=== PATIENT | male | born 1955 | race Hispanic/Latino ===

== ENCOUNTER 2018-12-25 10:40 | Inpatient (IN) | payer OTHER ==
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
[2018-12-25] MEDS ORDERED: VITAMIN B-1 100 MG, FOLVITE 1 MG, INFUVITE 10 ML in NACL 0.9% 1000 ML 1,000 ML IV ONE (11:32)
[2018-12-25 11:37] LABS: Albumin 4.8 g/dL (3.9-5); Calcium 9.7 mg/dL (8.4-10.2)
[2018-12-25] MEDS ORDERED: NACL 0.9% 1000 ML 1,000 ML IV ONE (11:37)
[2018-12-25 11:38] LABS: Basophils % (Auto) 0.3 % (0.0-1.8); Hematocrit 41.9 % (35.5-45.6); Hemoglobin 14.3 gm/dl (11.8-15.2); Lymphocytes # (Auto) 1.4 K/mm3 (1.2-5.4); Lymphocytes % (Auto) 10.6 % (13.4-35.0); Mean Corpuscular HGB Conc 34 % (32-34); Mean Corpuscular Volume 105 fl (84-94); Monocytes # (Auto) 1.2 K/mm3 (0.0-0.8); Monocytes % (Auto) 8.7 % (0.0-7.3); Platelet Count 293 K/mm3 (140-440); Red Blood Count 3.98 M/mm3 (3.65-5.03); Red Cell Distribution Width 14.8 % (13.2-15.2)
[2018-12-25] MEDS ORDERED: BOOSTRIX IM ONE (11:55)
[2018-12-25] MEDS ORDERED: VITAMIN B-1 100 MG, FOLVITE 1 MG, INFUVITE 10 ML, MAGNESIUM SULFATE 2 GM in NACL 0.9% 1... IV ONE (12:00)
--- NOTE | 2018-12-25 12:09 | Cat Scan Report ---
PROCEDURE: CT HEAD/BRAIN WO CON TECHNIQUE: Axial images obtained head without intravenous contrast HISTORY: altered mental status, head trauma of unknown orig COMPARISONS: None FINDINGS: No acute extra-axial fluid collection. No midline shift. No cisternal effacement. Mild age-appropriat e prominence of the ventricles and subarachnoid spaces. Atherosclerotic calcification distal internal carotid arteries. Kim-white interface maintained. No parenchymal hemorrhage. There is no abnormal h yperdensity over the middle cerebral arteries. Right supraorbital hematoma noted. Orbital contents un remarkable. Paranasal sinuses demonstrate no air-fluid level. Mastoid air cells normal aeration. Calv arium with no acute defect. IMPRESSION: No acute intracranial process Right supraorbital soft tissue hematoma. This document is electronically signed by Jeffrey Guerrero MD., December 25 2018 12:07:36 PM ET
[2018-12-25 12:24] LABS: Creatine Kinase MB 14.3 ng/mL (0.0-4.0)
[2018-12-25 12:35] LABS: Free T4 (Free Thyroxine) 0.85 ng/dL (0.76-1.46)
--- NOTE | 2018-12-25 13:16 | Cat Scan Report ---
PROCEDURE: CT CERVICAL SPINE WO CON TECHNIQUE: CT images of the cervical spine were obtained without the use of IV contrast HISTORY: altered mental status, head trauma of unknown origin COMPARISONS: None FINDINGS: The vertebral body heights and alignment are maintained. There are degenerative disc changes at C6-7. There are osteoarthritic changes of the atlantodental articulation. No acute fracture or subluxation is seen. IMPRESSION: No acute fracture or subluxation. This document is electronically signed by Gela Bradshaw MD., December 25 2018 01:14:39 PM ET
[2018-12-25] MEDS: ATIVAN IV PRN ×3 (13:36→16:00)
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
--- NOTE | 2018-12-25 14:11 | XRay Report ---
PROCEDURE: XR CHEST 1V AP TECHNIQUE: Frontal chest x-ray HISTORY: dypsnea COMPARISONS: None FINDINGS: Normal heart size. Lungs are clear well-expanded without focal consolidation. There is mild coarsening of the bronchovas cular interstitium with possible mild bronchial wall thickening the right infrahilar region Sharp costophrenic angles. IMPRESSION: Possible mild right infrahilar bronchitis or coarse infiltrate. This document is electronically signed by Yas Stauffer MD., December 25 2018 02:09:45 PM ET
[2018-12-25] MEDS ORDERED: PROVENTIL IH PRN (15:16)
[2018-12-25] MEDS ORDERED: SODIUM CHLORIDE FLUSH SYRINGE 10 ML IV PRN (15:16)
[2018-12-25] MEDS ORDERED: ATIVAN IV ONE (15:30)
[2018-12-25] MEDS: THERAGRAN Tab PO ONE ×2 (15:59→17:40)
[2018-12-25] MEDS: VITAMIN B-1 PO ONE ×2 (15:59→17:40)
[2018-12-25] MEDS: ROCEPHIN/NS 1 GM/50 ML 1 GM/50 ML BAG IV SCH (15:59)
[2018-12-25] MEDS ORDERED: HALDOL IM ONE (16:20)
[2018-12-25] MEDS ORDERED: HALDOL ONE (16:20)
[2018-12-25] MEDS ORDERED: ATIVAN ONE (21:07)
[2018-12-25] MEDS: SODIUM CHLORIDE FLUSH SYRINGE 10 ML IV SCH (22:08)
[2018-12-25 23:00] LABS: Bilirubin,Urine NEG (Negative); Blood,Urine SM (Negative); Color,Urine Amber (Yellow); Hyaline Casts,Urine 3 /LPF; Mucus,Urine FEW /HPF; Urobilinogen,Urine < 2.0 mg/dL (<2.0)
[2018-12-25 23:04] LABS: Creatinine,Urine 209.1 mg/dL (0.1-20.0)
[2018-12-25 23:09] LABS: Benzodiazepines Screen,Urine PRESUMPTIVE NEGATIVE; Cannabinoid Screen,Urine PRESUMPTIVE NEGATIVE; Cocaine Screen,Urine PRESUMPTIVE NEGATIVE; Methadone Screen,Urine PRESUMPTIVE NEGATIVE; Opiate Screen,Urine PRESUMPTIVE NEGATIVE
[2018-12-25 23:21] LABS: Amphetamine Screen,Urine PRESUMPTIVE POSITIVE
[2018-12-26] MEDS ORDERED: NACL 0.45% 1000 ML 1,000 ML IV SCH (02:00)
[2018-12-26 03:48] LABS: Basophils # (Auto) 0.1 K/mm3 (0.0-0.1); Basophils % (Auto) 0.6 % (0.0-1.8); Eosinophils % (Auto) 0.3 % (0.0-4.3); Hematocrit 39.6 % (35.5-45.6); Hemoglobin 13.3 gm/dl (11.8-15.2); Lymphocytes # (Auto) 1.6 K/mm3 (1.2-5.4); Mean Corpuscular HGB Conc 34 % (32-34); Mean Corpuscular Volume 106 fl (84-94); Monocytes # (Auto) 0.8 K/mm3 (0.0-0.8); Monocytes % (Auto) 7.8 % (0.0-7.3); Platelet Count 233 K/mm3 (140-440); Red Blood Count 3.75 M/mm3 (3.65-5.03); Red Cell Distribution Width 14.9 % (13.2-15.2)
[2018-12-26 04:11] LABS: Albumin 3.6 g/dL (3.9-5); Calcium 9.1 mg/dL (8.4-10.2)
[2018-12-26] MEDS ORDERED: ATIVAN ONE ×8 (04:47→22:30)
[2018-12-26] MEDS: ATIVAN IV PRN ×8 (04:51→22:30)
--- NOTE | 2018-12-26 10:49 | Consultation ---
History of Present Illness - Reason for Consult Consult date: 12/26/18 acute renal failure - History of Present Illness the patient is a 63 year old male was admitted for altered mental status and confusion possible to alcohol withdrawals, he was found to have increased Cr and CK and renal consult was requested . history obtained from chart, no family at bedside Past History Past Medical History: hypertension Past Surgical History: Other (Cyst removed from back) Social history: single, alcohol abuse Family history: hypertension Medications and Allergies Allergies Allergy/AdvReac Type Severity Reaction Status Date / Time No Known Allergies Allergy Verified 12/25/18 11:33 Home Medications Medication Instructions Recorded Confirmed Last Taken Type Unobtainable 12/26/18 12/26/18 Unknown History Active Meds: Active Medications Albuterol (Proventil) 2.5 mg IH Q3HRT PRN PRN Reason: Shortness Of Breath Folic Acid (Folvite) 1 mg PO QDAY SHELIA Ceftriaxone Sodium (Rocephin/Ns 1 Gm/50 Ml) 1 gm in 50 mls @ 100 mls/hr IV Q24H SHELIA; Protocol Last Admin: 12/25/18 15:59 Dose: 100 mls/hr Documented by: Sodium Chloride (Nacl 0.45% 1000 Ml) 1,000 mls @ 75 mls/hr IV DIRECT SHELIA Lorazepam (Ativan) 2 mg IV Q1HR PRN PRN Reason: CIWA-Ar 8-15 Last Admin: 12/26/18 06:34 Dose: 2 mg Documented by: Lorazepam (Ativan) 4 mg IV Q1HR PRN PRN Reason: CIWA-Ar 16-25 Last Admin: 12/25/18 16:00 Dose: 4 mg Documented by: Lorazepam (Ativan) 4 mg IV Q15MIN PRN PRN Reason: CIWA-Ar >25 Sodium Chloride (Sodium Chloride Flush Syringe 10 Ml) 10 ml IV BID SHELIA Last Admin: 12/25/18 22:08 Dose: 10 ml Documented by: Sodium Chloride (Sodium Chloride Flush Syringe 10 Ml) 10 ml IV PRN PRN PRN Reason: LINE FLUSH Exam - Vital Signs Vital signs: Vital Signs BP 144/99 12/25/18 10:50 - General Appearance General appearance: well-developed, well-nourished EENT: ATNC, PERRL Neck: Present: neck supple Respiratory: Clear to Ascultation Heart: tachycardia Gastrointestinal: Present: normoactive bowel sounds. Absent: tenderness, distended Integumentary: no rash, warm and dry Neurologic: other (does not follow commands) Musculoskeletal: Present: other (no edema in BLE) Psychiatric: other (does not answer questions) Results - Lab Results 12/26/18 03:27 12/26/18 03:27 Most recent lab results Calcium 9.1 mg/dL (8.4-10.2) 12/26/18 03:27 Urine Creatinine 209.1 mg/dL (0.1-20.0) H 12/25/18 22:44 Urine Sodium 72 mmol/L 12/25/18 22:44 Assessment and Plan Acute renal failure, prerenal azotemia vs. ATH secondary to rhabo Alcohol withdrawals Rhabdo secondary to alcohol abuse shortness of breath - Creatinine is trending down, will decrease IVF to 50 cc/h due to elevated BNP - will monitor CK daily - no indication for BRANCH DIRECTOR - renally dose meds - strict I&O - daily weight Rizwan Smith MD [phone]
[2018-12-26] MEDS: SODIUM CHLORIDE FLUSH SYRINGE 10 ML IV SCH ×2 (11:11→22:31)
[2018-12-26] MEDS: FOLVITE PO SCH (11:11)
[2018-12-26] MEDS ORDERED: NACL 0.45% 1000 ML 1,000 ML IV ONE (12:15)
--- NOTE | 2018-12-26 15:43 | Progress Note ---
Assessment and Plan (1) Encephalopathy Current Visit: Yes Status: Acute Plan to address problem: Sec to DT's and AARON (2) ARF (acute renal failure) Current Visit: Yes Status: Acute Qualifiers: Acute renal failure type: with acute tubular necrosis Qualified Code(s): N17.0 - Acute kidney failure with tubular necrosis Plan to address problem: Improved BuN/Cr improved from 30//2.5 to 32/1.3 (3) SIRS (systemic inflammatory response syndrome) Current Visit: Yes Status: Acute Plan to address problem: Empiric IV antibiotic therapy, chext x ray, urinalysis, CBC, (4) Rhabdomyolysis Current Visit: Yes Status: Acute Qualifiers: Encounter type: initial encounter Plan to address problem: IVF resuscitation therapy as tolerated, nephrology consulted, IV bicarbonate therapy x1 CK levels worsening CK went up from mid 1000's to 6000 (5) Delirium tremens Current Visit: Yes Status: Acute Plan to address problem: CIWA protocol, Banana bag, IVF resuscitation therapy, Haldol PRN (6) CHF (congestive heart failure) Current Visit: Yes Status: Acute Qualifiers: Heart failure type: diastolic Heart failure chronicity: acute Qualified Code(s): I50.31 - Acute diastolic (congestive) heart failure Plan to address problem: BNP high Per Cardiology CHF unlikely (7) DVT prophylaxis Current Visit: Yes Status: Acute Plan to address problem: SCD to BLE while in bed, Subjective Date of service: 12/26/18 Principal diagnosis: Encephalopathy Interval history: Decreased responsiveness and lethargic Objective - Constitutional Vitals: Vital Signs - 12hr 12/26/18 12/26/18 12/26/18 04:56 06:00 06:30 Pulse Rate 94 H Respiratory 18 Rate Blood Pressure 139/83 139/83 Blood Pressure 134/87 [Left] O2 Sat by Pulse 100 97 99 Oximetry 12/26/18 12/26/18 12/26/18 06:46 07:00 08:00 Pulse Rate Respiratory Rate Blood Pressure 139/83 139/83 135/80 Blood Pressure [Left] O2 Sat by Pulse 99 99 Oximetry 12/26/18 12/26/18 12/26/18 08:30 10:30 11:00 Pulse Rate Respiratory Rate Blood Pressure 131/86 128/85 131/87 Blood Pressure [Left] O2 Sat by Pulse 100 Oximetry 12/26/18 12/26/1812/26/19 11:31 14:46 15:00 Pulse Rate 126 H 119 H Respiratory 20 22 Rate Blood Pressure 165/93 156/83 Blood Pressure 143/68 [Left] O2 Sat by Pulse 96 97 Oximetry General appearance: Present: mild distress, well-nourished, obese, disheveled - EENT Eyes: PERRL, EOM intact ENT: hearing intact, clear oral mucosa Ears: bilateral: normal - Neck Neck: supple, normal ROM - Respiratory Respiratory effort: normal Respiratory: bilateral: CTA - Breasts Breasts: normal - Cardiovascular Heart rate: 90 Rhythm: regular Heart Sounds: Present: S1 & S2. Absent: gallop, rub Extremities: no ischemia, pulses intact, No edema, normal color, Full ROM - Gastrointestinal General gastrointestinal: Present: soft, non-tender, non-distended, normal bowel sounds - Genitourinary Male genitourinary: normal - Integumentary Integumentary: clear, warm, dry - Musculoskeletal Musculoskeletal: 1, strength equal bilaterally - Neurologic Neurologic: moves all extremities - Psychiatric Psychiatric: agitated, depressed - Allied health notes Allied health notes reviewed: nursing, case management - Labs CBC & Chem 7: 12/27/18 04:25 12/26/18 03:27 Labs: Abnormal lab results 12/25/18 12/26/18 12/26/18 Range/Units 22:44 03:27 03:27 MCV 106 H (84-94) fl MCH 35 H (28-32) pg [place] % (Auto) 7.8 H (0.0-7.3) % Seg Neutrophils % 75.3 H (40.0-70.0) % Sodium 149 H (137-145) mmol/L Chloride 110.4 H (98-107) mmol/L Carbon Dioxide 20 L (22-30) mmol/L BUN 32 H (9-20) mg/dL Glucose 71 L (75-100) mg/dL AST 143 H (5-40) units/L ALT 94 H (7-56) units/L Total Protein 6.2 L D (6.3-8.2) g/dL Albumin 3.6 L (3.9-5) g/dL Urine Creatinine 209.1 H (0.1-20.0) mg/dL
[2018-12-26] MEDS: ROCEPHIN/NS 1 GM/50 ML 1 GM/50 ML BAG IV SCH (16:09)
--- NOTE | 2018-12-26 19:40 | Consultation ---
History of Present Illness Consult date: 12/26/18 Consult reason: congestive heart failure History of present illness: The patient is a 63-year-old man who presented to the emergency room with altered mental status, extubated multiple soft tissue injuries on the face and on the extremities, reportedly possibly due to falls. During the emergency room course, the patient has been agitated, uncooperative with medical examination on assessment. Cardiovascular consultation was requested for "CHF". There is no reported shortness of breath or chest pain. Chest x-ray reveals no evidence of interstitial edema or heart failure. Cardiac silhouette is normal size on the chest x-ray. ECG is normal sinus rhythm, normal ECG. Laboratory exam demonstrates a CPK of 1595 which is consistent with rhabdomyolysis. A presenting creatinine of 2.5 was due to prerenal azotemia and has improved with hydration. Past History Past Medical History: hypertension Past Surgical History: Other (Cyst removed from back) Social history: single, alcohol abuse Family history: hypertension Medications and Allergies Allergies Allergy/AdvReac Type Severity Reaction Status Date / Time No Known Allergies Allergy Verified 12/25/18 11:33 Home Medications Medication Instructions Recorded Confirmed Last Taken Type Unobtainable 12/26/18 12/26/18 Unknown History Active Meds: Active Medications Albuterol (Proventil) 2.5 mg IH Q3HRT PRN PRN Reason: Shortness Of Breath Folic Acid (Folvite) 1 mg PO QDAY [facility] Last Admin: 12/26/18 11:11 Dose: 1 mg Documented by: Ceftriaxone Sodium (Rocephin/Ns 1 Gm/50 Ml) 1 gm in 50 mls @ 100 mls/hr IV Q24H SHELIA; Protocol Last Admin: 12/26/18 16:09 Dose: 100 mls/hr Documented by: Sodium Chloride (Nacl 0.45% 1000 Ml) 1,000 mls @ 50 mls/hr IV DIRECT SHELIA Last Admin: 12/26/18 12:18 Dose: 50 mls/hr Documented by: Lorazepam (Ativan) 2 mg IV Q1HR PRN PRN Reason: Airam 8-15 Last Admin: 12/26/18 06:34 Dose: 2 mg Documented by: Lorazepam (Ativan) 4 mg IV Q1HR PRN PRN Reason: Airam 16-25 Last Admin: 12/26/18 15:45 Dose: 4 mg Documented by: Lorazepam (Ativan) 4 mg IV Q15MIN PRN PRN Reason: CIWA-Ar >25 Last Admin: 12/26/18 14:10 Dose: 4 mg Documented by: Sodium Chloride (Sodium Chloride Flush Syringe 10 Ml) 10 ml IV BID SHELIA Last Admin: 12/26/18 11:11 Dose: 10 ml Documented by: Sodium Chloride (Sodium Chloride Flush Syringe 10 Ml) 10 ml IV PRN PRN PRN Reason: LINE FLUSH Review of Systems ROS unobtainable: due to mental status Physical Examination Vital Signs BP 144/99 12/25/18 10:50 General appearance: other (patient is restless, agitated and noncooperative. Multiple soft tissue injuries on face and extremities) HEENT: Positive: PERRL Neck: Positive: neck supple Cardiac: Positive: Reg Rate and Rhythm Lungs: Positive: Decreased Breath Sounds Neuro: Positive: Grossly Intact Abdomen: Positive: Soft Male genitourinary: Positive: deferred Skin: Positive: Clear Extremities: Absent: edema Results 12/26/18 03:27 12/26/18 03:27 Cardiac Enzymes 12/26/18 Range/Units 03:27 AST 143 H (5-40) units/L CBC 12/26/18 Range/Units 03:27 WBC 10.0 (4.5-11.0) K/mm3 RBC 3.75 (3.65-5.03) M/mm3 Hgb 13.3 (11.8-15.2) gm/dl Hct 39.6 (35.5-45.6) % Plt Count 233 (140-440) K/mm3 Lymph # 1.6 (1.2-5.4) K/mm3 [place] # 0.8 (0.0-0.8) K/mm3 Eos # 0.0 (0.0-0.4) K/mm3 Baso # 0.1 (0.0-0.1) K/mm3 Comprehensive Metabolic Panel 12/26/18 Range/Units 03:27 Sodium 149 H (137-145) mmol/L Potassium 3.8 (3.6-5.0) mmol/L Chloride 110.4 H (98-107) mmol/L Carbon Dioxide 20 L (22-30) mmol/L BUN 32 H (9-20) mg/dL Creatinine 1.3 (0.8-1.5) mg/dL Glucose 71 L (75-100) mg/dL Calcium 9.1 (8.4-10.2) mg/dL AST 143 H (5-40) units/L ALT 94 H (7-56) units/L Alkaline Phosphatase 97 (35-129) units/L Total Protein 6.2 L D (6.3-8.2) g/dL Albumin 3.6 L (3.9-5) g/dL EKG interpretations - Telemetry EKG Rhythm: Sinus Rhythm Assessment and Plan - Patient Problems (1) Altered mental status Current Visit: Yes Status: Acute Plan to address problem: There is no clinical or radiologic evidence for CHF, no active cardiac issues, no indication for further cardiac workup, we will sign off.
[2018-12-27] MEDS ORDERED: ATIVAN ONE ×2 (01:48→03:22)
[2018-12-27] MEDS: ATIVAN IV PRN ×7 (01:50→21:47)
[2018-12-27 04:59] LABS: Basophils % (Auto) 0.4 % (0.0-1.8); Eosinophils % (Auto) 0.2 % (0.0-4.3); Hematocrit 39.5 % (35.5-45.6); Hemoglobin 13.1 gm/dl (11.8-15.2); Lymphocytes # (Auto) 1.5 K/mm3 (1.2-5.4); Lymphocytes % (Auto) 15.8 % (13.4-35.0); Mean Corpuscular HGB Conc 33 % (32-34); Mean Corpuscular Volume 109 fl (84-94); Monocytes % (Auto) 10.2 % (0.0-7.3); Platelet Count 254 K/mm3 (140-440); Red Blood Count 3.62 M/mm3 (3.65-5.03)
[2018-12-27] MEDS: FOLVITE PO SCH (11:16)
[2018-12-27] MEDS: SODIUM CHLORIDE FLUSH SYRINGE 10 ML IV SCH ×2 (11:17→21:47)
--- NOTE | 2018-12-27 11:24 | Progress Note ---
Assessment and Plan Acute renal failure, prerenal azotemia vs. 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 - renally dose meds - strict I&O - daily weight Rizwan Smith MD [phone] Subjective Date of service: 12/27/18 Principal diagnosis: Encephalopathy Interval history: more awake, oriented only to self, family at bedside Objective - Vital Signs Vital signs: Vital Signs - 12hr 12/26/18 12/26/18 12/26/18 23:30 23:46 23:52 Pulse Rate 125 H 112 H 113 H Respiratory 18 25 H 26 H Rate Blood Pressure 139/94 139/94 139/94 Blood Pressure [Left] O2 Sat by Pulse 90 93 89 Oximetry 12/27/18 12/27/18 12/27/18 00:00 00:16 00:30 Pulse Rate 113 H 111 H 109 H Respiratory 25 H 28 H 25 H Rate Blood Pressure 149/87 149/87 138/84 Blood Pressure [Left] O2 Sat by Pulse 95 87 93 Oximetry 12/27/18 12/27/18 12/27/18 00:46 01:00 01:16 Pulse Rate 112 H 105 H 103 H Respiratory 17 20 21 Rate Blood Pressure 138/84 138/84 131/92 Blood Pressure [Left] O2 Sat by Pulse 91 95 94 Oximetry 12/27/18 12/27/18 12/27/18 01:30 01:46 02:00 Pulse Rate 109 H 107 H 111 H Respiratory 21 32 H 25 H Rate Blood Pressure 131/92 131/92 123/57 Blood Pressure [Left] O2 Sat by Pulse 94 90 96 Oximetry 12/27/18 12/27/18 12/27/18 02:16 02:30 02:45 Pulse Rate 116 H 112 H 116 H Respiratory 18 18 18 Rate Blood Pressure 123/57 144/88 144/88 Blood Pressure [Left] O2 Sat by Pulse 94 89 90 Oximetry 12/27/18 12/27/18 12/27/18 03:00 03:16 03:30 Pulse Rate 107 H 107 H 106 H Respiratory 26 H 18 22 Rate Blood Pressure 143/87 143/87 125/80 Blood Pressure [Left] O2 Sat by Pulse 86 97 89 Oximetry 12/27/18 12/27/18 12/27/18 03:46 04:00 04:15 Pulse Rate 125 H 118 H Respiratory 18 22 24 Rate Blood Pressure 125/80 147/90 147/90 Blood Pressure [Left] O2 Sat by Pulse 94 87 83 L Oximetry 12/27/18 12/27/18 12/27/18 04:30 04:46 05:00 Pulse Rate 114 H 113 H 116 H Respiratory 17 15 25 H Rate Blood Pressure 147/90 155/84 155/84 Blood Pressure [Left] O2 Sat by Pulse 86 85 Oximetry 12/27/18 12/27/18 12/27/18 05:16 05:30 05:46 Pulse Rate 114 H 113 H 112 H Respiratory 16 16 13 Rate Blood Pressure 155/84 155/84 155/84 Blood Pressure [Left] O2 Sat by Pulse 82 L 83 L Oximetry 12/27/18 12/27/18 12/27/18 06:00 06:16 07:00 Pulse Rate 114 H 113 H 104 H Respiratory 32 H 20 19 Rate Blood Pressure 155/84 178/93 Blood Pressure 163/94 [Left] O2 Sat by Pulse 81 L 82 L 95 Oximetry 12/27/18 09:00 Pulse Rate 108 H Respiratory 20 Rate Blood Pressure Blood Pressure 148/78 [Left] O2 Sat by Pulse 96 Oximetry - General Appearance General appearance: well-developed, well-nourished EENT: ATNC, PERRL, mucous membranes dry Neck: no JVD, no carotid bruit Respiratory: Present: Clear to Ascultation. Absent: Rales, Ronchi Cardiology: regular, S1S2 Gastrointestinal: normoactive bowel sounds, no tenderness, no distended Integumentary: no rash, warm and dry Neurologic: other (follows simple commands) Musculoskeletal: other (no edema in BLE) Psychiatric: other (answers simple questions) - Lab 12/27/18 04:25 12/26/18 03:27 Most recent lab results Calcium 9.1 mg/dL (8.4-10.2) 12/26/18 03:27 Phosphorus 4.10 mg/dL (2.5-4.5) 12/27/18 04:25 Urine Creatinine 209.1 mg/dL (0.1-20.0) H 12/25/18 22:44 Urine Sodium 72 mmol/L 12/25/18 22:44 Medications & Allergies - Medications Allergies/Adverse Reactions: Allergies No Known Allergies Allergy (Verified 12/25/18 11:33) Home Medications: Home Medications Medication Instructions Recorded Confirmed Last Taken Type Unobtainable 12/26/18 12/26/18 Unknown History Active Medications: Generic Name Dose Route Start Last Admin Trade Name Freq PRN Reason Stop Dose Admin Albuterol 2.5 mg 12/25/18 15:16 Proventil IH Q3HRT PRN Shortness Of Breath Folic Acid 1 mg 12/26/18 10:00 12/27/18 11:16 Folvite PO 1 mg QDAY SHELIA Administration Ceftriaxone Sodium 1 gm in 50 mls @ 100 mls/hr 12/25/18 16:00 12/26/18 16:09 Rocephin/Ns 1 Gm/50 Ml IV 100 mls/hr Q24H SHELIA Administration Protocol Sodium Chloride 1,000 mls @ 50 mls/hr 12/26/18 02:00 12/26/18 12:18 Nacl 0.45% 1000 Ml IV 50 mls/hr DIRECT SHELIA Administration Lorazepam 2 mg 12/25/18 13:29 12/26/18 06:34 Ativan IV 2 mg Q1HR PRN Administration CIWA-Ar 8-15 Lorazepam 4 mg 12/25/18 13:29 12/27/18 11:16 Ativan IV 4 mg Q1HR PRN Administration CIWA-Ar 16-25 Lorazepam 4 mg 12/25/18 13:29 12/27/18 03:22 Ativan IV 4 mg Q15MIN PRN Administration CIWA-Ar >25 Sodium Chloride 10 ml 12/25/18 22:00 12/27/18 11:17 Sodium Chloride Flush Syringe 10 Ml IV 10 ml BID SHELIA Administration Sodium Chloride 10 ml 12/25/18 15:16 Sodium Chloride Flush Syringe 10 Ml IV PRN PRN LINE FLUSH
--- NOTE | 2018-12-27 12:28 | Progress Note ---
Assessment and Plan Assessment and plan: Acute kidney injury iv fluids Rhabdomyolysis Continue iv fluids Alcohol withdrawal syndrome [facility] protocol Add Atenolol Clonidine 0.1 mg by mouth twice a day Metabolic encephalopathy Hypernatremia, D5 water Hypertensive urgency Atenolol, Clonidine Full code History Interval history: Confused Hospitalist Physical - Physical exam Narrative exam: Gen: Not in acute distress, lying in bed HEENT: Normocephalic, atraumatic Heart: S1 and S2 reg, tachy,no murmurs, rubs or gallop Lungs: Clear, no crackles, Abd: soft, non tender, non distended, normal BS Ext: No edema, no clubbing, no cyanosis Neuro: Awake,alert, oriented to person, not place or time, confused, moves all ext Psych:Normal mood - Constitutional Vitals: Temp Pulse Resp BP Pulse Ox 97.3 F L 108 H 20 148/78 96 12/25/18 19:34 12/27/18 09:00 12/27/18 09:00 12/27/18 09:00 12/27/18 09:00 General appearance: Present: mild distress, well-nourished, obese, disheveled Results - Labs CBC & Chem 7: 12/28/18 05:39 12/28/18 05:39 Labs: Laboratory Last Values WBC 9.5 K/mm3 (4.5-11.0) 12/27/18 04:25 RBC 3.62 M/mm3 (3.65-5.03) L 12/27/18 04:25 Hgb 13.1 gm/dl (11.8-15.2) 12/27/18 04:25 Hct 39.5 % (35.5-45.6) 12/27/18 04:25 MCV 109 fl (84-94) H 12/27/18 04:25 MCH 36 pg (28-32) H 12/27/18 04:25 MCHC 33 % (32-34) 12/27/18 04:25 RDW 15.0 % (13.2-15.2) 12/27/18 04:25 Plt Count 254 K/mm3 (140-440) 12/27/18 04:25 Lymph % (Auto) 15.8 % (13.4-35.0) 12/27/18 04:25 [place] % (Auto) 10.2 % (0.0-7.3) H 12/27/18 04:25 Eos % (Auto) 0.2 % (0.0-4.3) 12/27/18 04:25 Baso % (Auto) 0.4 % (0.0-1.8) 12/27/18 04:25 Lymph # 1.5 K/mm3 (1.2-5.4) 12/27/18 04:25 [place] # 1.0 K/mm3 (0.0-0.8) H 12/27/18 04:25 Eos # 0.0 K/mm3 (0.0-0.4) 12/27/18 04:25 Baso # 0.0 K/mm3 (0.0-0.1) 12/27/18 04:25 Seg Neutrophils % 73.4 % (40.0-70.0) H 12/27/18 04:25 Seg Neutrophils # 6.9 K/mm3 (1.8-7.7) 12/27/18 04:25 APTT 24.2 Sec. (24.2-36.6) 12/25/18 11:13 Sodium 159 mmol/L (137-145) H D 12/27/18 11:35 Potassium 4.3 mmol/L (3.6-5.0) 12/27/18 11:35 Chloride 117.8 mmol/L (98-107) H 12/27/18 11:35 Carbon Dioxide 12 mmol/L (22-30) L D 12/27/18 11:35 Anion Gap 34 mmol/L 12/27/18 11:35 BUN 28 mg/dL (9-20) H 12/27/18 11:35 Creatinine 1.5 mg/dL (0.8-1.5) 12/27/18 11:35 Estimated GFR 47 ml/min 12/27/18 11:35 BUN/Creatinine Ratio 19 % 12/27/18 11:35 Glucose 70 mg/dL (75-100) L 12/27/18 11:35 Calcium 9.0 mg/dL (8.4-10.2) 12/27/18 11:35 Phosphorus 4.10 mg/dL (2.5-4.5) 12/27/18 04:25 Total Bilirubin 0.80 mg/dL (0.1-1.2) 12/26/18 03:27 AST 143 units/L (5-40) H 12/26/18 03:27 ALT 94 units/L (7-56) H 12/26/18 03:27 Alkaline Phosphatase 97 units/L (35-129) 12/26/18 03:27 Ammonia 45.0 umol/L (25-60) 12/25/18 11:13 Total Creatine Kinase 6127 units/L (55-170) H 12/27/18 04:25 CK-MB (CK-2) 14.3 ng/mL (0.0-4.0) H 12/25/18 11:13 CK-MB (CK-2) Rel Index 0.8 (0-4) 12/25/18 11:13 Troponin T 0.020 ng/mL (0.00-0.029) 12/25/18 11:13 NT-Pro-B Natriuret Pep 2658 pg/mL (0-900) H 12/25/18 11:13 Total Protein 6.2 g/dL (6.3-8.2) L D 12/26/18 03:27 Albumin 3.6 g/dL (3.9-5) L 12/26/18 03:27 Albumin/Globulin Ratio 1.4 % 12/26/18 03:27 TSH 2.090 mlU/mL (0.270-4.200) 12/25/18 11:13 Free T4 0.85 ng/dL (0.76-1.46) 12/25/18 11:13 Urine Color [place] (Yellow) 12/25/18 22:44 Urine Turbidity Slightly-cloudy (Clear) 12/25/18 22:44 Urine pH 5.0 (5.0-7.0) 12/25/18 22:44 Ur Specific [place] 1.024 (1.003-1.030) 12/25/18 22:44 Urine Protein 30 mg/dl mg/dL (Negative) 12/25/18 22:44 Urine Glucose (UA) Neg mg/dL (Negative) 12/25/18 22:44 Urine Ketones 20 mg/dL (Negative) 12/25/18 22:44 Urine Blood Sm (Negative) 12/25/18 22:44 Urine Nitrite Neg (Negative) 12/25/18 22:44 Urine Bilirubin Neg (Negative) 12/25/18 22:44 Urine Urobilinogen < 2.0 mg/dL (<2.0) 12/25/18 22:44 Ur Leukocyte Esterase Neg (Negative) 12/25/18 22:44 Urine WBC (Auto) 4.0 /HPF (0.0-6.0) 12/25/18 22:44 Urine RBC (Auto) 2.0 /HPF (0.0-6.0) 12/25/18 22:44 U Epithel Cells (Auto) < 1.0 /HPF (0-13.0) 12/25/18 22:44 Hyaline Casts 3 /LPF 12/25/18 22:44 Urine Mucus Few /HPF 12/25/18 22:44 Urine Creatinine 209.1 mg/dL (0.1-20.0) H 12/25/18 22:44 Urine Sodium 72 mmol/L 12/25/18 22:44 Urine Opiates Screen Presumptive negative 12/25/18 22:44 Urine Methadone Screen Presumptive negative 12/25/18 22:44 Ur Barbiturates Screen Presumptive negative 12/25/18 22:44 Ur Phencyclidine Scrn Presumptive negative 12/25/18 22:44 Ur Amphetamines Screen Presumptive positive 12/25/18 22:44 U Benzodiazepines Scrn Presumptive negative 12/25/18 22:44 Urine Cocaine Screen Presumptive negative 12/25/18 22:44 U Marijuana (THC) Screen Presumptive negative 12/25/18 22:44 Drugs of Abuse Note Disclamer 12/25/18 22:44 Plasma/Serum Alcohol < 0.01 % (0-0.07) 12/25/18 11:05 Active Medications - Current Medications Current Medications: Generic Name Dose Route Start Last Admin Trade Name Freq PRN Reason Stop Dose Admin Albuterol 2.5 mg 12/25/18 15:16 Proventil IH Q3HRT PRN Shortness Of Breath Folic Acid 1 mg 12/26/18 10:00 12/27/18 11:16 Folvite PO 1 mg QDAY SHELIA Administration Ceftriaxone Sodium 1 gm in 50 mls @ 100 mls/hr 12/25/18 16:00 12/26/18 16:09 Rocephin/Ns 1 Gm/50 Ml IV 100 mls/hr Q24H SHELIA Administration Protocol Sodium Chloride 1,000 mls @ 50 mls/hr 12/26/18 02:00 12/26/18 12:18 Nacl 0.45% 1000 Ml IV 50 mls/hr DIRECT SHELIA Administration Lorazepam 2 mg 12/25/18 13:29 12/26/18 06:34 Ativan IV 2 mg Q1HR PRN Administration CIWA-Ar 8-15 Lorazepam 4 mg 12/25/18 13:29 12/27/18 11:16 Ativan IV 4 mg Q1HR PRN Administration CIWA-Ar 16-25 Lorazepam 4 mg 12/25/18 13:29 12/27/18 03:22 Ativan IV 4 mg Q15MIN PRN Administration CIWA-Ar >25 Sodium Chloride 10 ml 12/25/18 22:00 12/27/18 11:17 Sodium Chloride Flush Syringe 10 Ml IV 10 ml BID SHELIA Administration Sodium Chloride 10 ml 12/25/18 15:16 Sodium Chloride Flush Syringe 10 Ml IV PRN PRN LINE FLUSH
[2018-12-27] MEDS ORDERED: TENORMIN PO SCH (13:00)
[2018-12-27] MEDS: D5W 1,000 ML IV SCH (15:03)
[2018-12-27] MEDS: ROCEPHIN/NS 1 GM/50 ML 1 GM/50 ML BAG IV SCH (19:26)
[2018-12-27] MEDS ORDERED: APRESOLINE IV PRN (23:06)
[2018-12-27] MEDS ORDERED: CATAPRES PO SCH (23:45)
[2018-12-28] MEDS: ATIVAN IV PRN ×4 (00:24→15:04)
[2018-12-28 06:42] LABS: Basophils % (Auto) 0.5 % (0.0-1.8); Eosinophils # (Auto) 0.1 K/mm3 (0.0-0.4); Eosinophils % (Auto) 1.3 % (0.0-4.3); Hematocrit 41.7 % (35.5-45.6); Hemoglobin 13.7 gm/dl (11.8-15.2); Lymphocytes # (Auto) 1.4 K/mm3 (1.2-5.4); Lymphocytes % (Auto) 19.5 % (13.4-35.0); Mean Corpuscular HGB Conc 33 % (32-34); Mean Corpuscular Volume 108 fl (84-94); Monocytes # (Auto) 0.9 K/mm3 (0.0-0.8); Monocytes % (Auto) 12.8 % (0.0-7.3); Platelet Count 239 K/mm3 (140-440); Red Blood Count 3.87 M/mm3 (3.65-5.03); Red Cell Distribution Width 15.2 % (13.2-15.2)
[2018-12-28 06:48] LABS: Calcium 9.5 mg/dL (8.4-10.2)
[2018-12-28] MEDS: FOLVITE PO SCH (10:23)
[2018-12-28] MEDS: TENORMIN PO SCH (10:23)
[2018-12-28] MEDS: D5W 1,000 ML IV SCH (10:24)
[2018-12-28] MEDS: SODIUM CHLORIDE FLUSH SYRINGE 10 ML IV SCH ×2 (10:26→22:57)
--- NOTE | 2018-12-28 11:58 | Progress Note ---
Assessment and Plan Acute renal failure, prerenal azotemia vs. ATH secondary to rhabo Alcohol withdrawals Hypernatremia Rhabdo secondary to alcohol abuse Shortness of breath - Renal function reviewed. Serum creatinine 1.4 today, yesterday's was 1.5 - Hypernatremia- On D5W@ 50 ml/hr, will increase rate to 100 ml/hr. 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 Patient is agitated and confused. Objective - Vital Signs Vital signs: Vital Signs - 12hr 12/28/18 12/28/18 12/28/18 00:00 00:01 00:24 Temperature 99.0 F Pulse Rate 103 H 112 H Respiratory 16 Rate Blood Pressure 181/127 184/106 O2 Sat by Pulse 99 Oximetry 12/28/18 12/28/18 12/28/18 00:25 01:01 02:01 Temperature Pulse Rate 111 H 110 H Respiratory 20 25 H 21 Rate Blood Pressure 173/105 173/105 O2 Sat by Pulse 98 99 98 Oximetry 12/28/18 12/28/18 12/28/18 03:00 04:00 04:01 Temperature 99.4 F Pulse Rate 93 H 99 H Respiratory 18 20 17 Rate Blood Pressure 170/92 170/92 O2 Sat by Pulse 95 98 98 Oximetry 12/28/18 12/28/18 12/28/18 05:01 06:01 07:01 Temperature Pulse Rate 103 H 107 H 102 H Respiratory 15 17 20 Rate Blood Pressure 167/131 153/103 167/131 O2 Sat by Pulse 98 98 99 Oximetry 12/28/18 12/28/18 08:00 10:23 Temperature 97.9 F Pulse Rate 114 H Respiratory Rate Blood Pressure 180/114 O2 Sat by Pulse Oximetry - General Appearance General appearance: well-developed, fatigue EENT: ATNC, PERRL Neck: no JVD, supple Respiratory: Present: Decreased Breath Sounds Cardiology: regular, S1S2 Gastrointestinal: normoactive bowel sounds Integumentary: warm and dry Neurologic: other (Agitated and confused) Musculoskeletal: other (No edema to BLE) Psychiatric: agitated - Lab 12/28/18 05:39 04/10/19 05:39 Most recent lab results Calcium 9.5 mg/dL (8.4-10.2) 12/28/18 05:39 Phosphorus 4.50 mg/dL (2.5-4.5) 12/28/18 05:39 Urine Creatinine 209.1 mg/dL (0.1-20.0) H 12/25/18 22:44 Urine Sodium 72 mmol/L 12/25/18 22:44 Medications & Allergies - Medications Allergies/Adverse Reactions: Allergies No Known Allergies Allergy (Verified 12/25/18 11:33) Home Medications: Home Medications Medication Instructions Recorded Confirmed Last Taken Type Unobtainable 12/26/18 12/26/18 Unknown History Active Medications: Generic Name Dose Route Start Last Admin Trade Name Freq PRN Reason Stop Dose Admin Albuterol 2.5 mg 12/25/18 15:16 Proventil IH Q3HRT PRN Shortness Of Breath Atenolol 100 mg 12/28/18 10:00 12/28/18 10:23 Tenormin PO 100 mg QDAY SHELIA Administration Clonidine HCl 0.2 mg 12/28/18 10:00 Catapres PO Q12HR SHELIA Folic Acid 1 mg 12/26/18 10:00 12/28/18 10:23 Folvite PO 1 mg QDAY SHELIA Administration Hydralazine HCl 20 mg 12/27/18 23:06 Apresoline IV Q4H PRN SBP>170 orrr DBP >110 Ceftriaxone Sodium 1 gm in 50 mls @ 100 mls/hr 12/25/18 16:00 12/27/18 19:26 Rocephin/Ns 1 Gm/50 Ml IV Not Given Q24H SHELIA Protocol Dextrose 1,000 mls @ 50 mls/hr 12/27/18 13:00 12/28/18 10:24 D5w IV 50 mls/hr DIRECT SHELIA Administration Lorazepam 2 mg 12/25/18 13:29 12/26/18 06:34 Ativan IV 2 mg Q1HR PRN Administration CIWA-Ar 8-15 Lorazepam 4 mg 12/25/18 13:29 12/28/18 11:47 Ativan IV 4 mg Q1HR PRN Administration CIWA-Ar 16-25 Lorazepam 4 mg 12/25/18 13:29 12/28/18 00:24 Ativan IV 4 mg Q15MIN PRN Administration CIWA-Ar >25 Sodium Chloride 10 ml 12/25/18 22:00 12/28/18 10:26 Sodium Chloride Flush Syringe 10 Ml IV 10 ml BID SHELIA Administration Sodium Chloride 10 ml 12/25/18 15:16 Sodium Chloride Flush Syringe 10 Ml IV PRN PRN LINE FLUSH
--- NOTE | 2018-12-28 14:24 | Progress Note ---
Assessment and Plan Assessment and plan: Acute kidney injury iv fluids Rhabdomyolysis Continue iv fluids Delirium tremens Alcohol withdrawal syndrome CIWA protocol increase Atenolol to 100mg bid Increase Clonidine to 0.2 mg by mouth twice a day Metabolic encephalopathy Hypernatremia, D5 water Hypertensive urgency Atenolol, Clonidine Full code History Interval history: Confused Recurrent falls Hallucination Hospitalist Physical - Physical exam Narrative exam: Gen: Not in acute distress, lying in bed HEENT: Normocephalic, atraumatic Heart: S1 and S2 reg, tachy,no murmurs, rubs or gallop Lungs: Clear, no crackles, Abd: soft, non tender, non distended, normal BS Ext: No edema, no clubbing, no cyanosis Neuro: Awake,alert, oriented to person, not place or time, confused, moves all ext,tremors hands Psych:Normal mood - Constitutional Vitals: Temp Pulse Resp BP Pulse Ox 101.3 F H 97 H 21 186/96 99 12/28/18 12:00 12/28/18 12:01 12/28/18 12:01 12/28/18 12:01 12/28/18 12:01 General appearance: Present: mild distress, well-nourished, obese, disheveled Results - Labs CBC & Chem 7: 12/28/18 05:39 12/28/18 05:39 Labs: Laboratory Last Values WBC 7.0 K/mm3 (4.5-11.0) 12/28/18 05:39 RBC 3.87 M/mm3 (3.65-5.03) 12/28/18 05:39 Hgb 13.7 gm/dl (11.8-15.2) 12/28/18 05:39 Hct 41.7 % (35.5-45.6) 12/28/18 05:39 MCV 108 fl (84-94) H 12/28/18 05:39 MCH 35 pg (28-32) H 12/28/18 05:39 MCHC 33 % (32-34) 12/28/18 05:39 RDW 15.2 % (13.2-15.2) 12/28/18 05:39 Plt Count 239 K/mm3 (140-440) 12/28/18 05:39 Lymph % (Auto) 19.5 % (13.4-35.0) 12/28/18 05:39 [place] % (Auto) 12.8 % (0.0-7.3) H 12/28/18 05:39 Eos % (Auto) 1.3 % (0.0-4.3) 12/28/18 05:39 Baso % (Auto) 0.5 % (0.0-1.8) 12/28/18 05:39 Lymph # 1.4 K/mm3 (1.2-5.4) 12/28/18 05:39 [place] # 0.9 K/mm3 (0.0-0.8) H 12/28/18 05:39 Eos # 0.1 K/mm3 (0.0-0.4) 12/28/18 05:39 Baso # 0.0 K/mm3 (0.0-0.1) 12/28/18 05:39 Seg Neutrophils % 65.9 % (40.0-70.0) 12/28/18 05:39 Seg Neutrophils # 4.6 K/mm3 (1.8-7.7) 12/28/18 05:39 APTT 24.2 Sec. (24.2-36.6) 12/25/18 11:13 Sodium 158 mmol/L (137-145) H 12/28/18 05:39 Potassium 3.7 mmol/L (3.6-5.0) 12/28/18 05:39 Chloride 117.4 mmol/L (98-107) H 12/28/18 05:39 Carbon Dioxide 20 mmol/L (22-30) L D 12/28/18 05:39 Anion Gap 24 mmol/L 12/28/18 05:39 BUN 25 mg/dL (9-20) H 12/28/18 05:39 Creatinine 1.4 mg/dL (0.8-1.5) 12/28/18 05:39 Estimated GFR 51 ml/min 12/28/18 05:39 BUN/Creatinine Ratio 18 % 12/28/18 05:39 Glucose 105 mg/dL (75-100) H 12/28/18 05:39 Calcium 9.5 mg/dL (8.4-10.2) 12/28/18 05:39 Phosphorus 4.50 mg/dL (2.5-4.5) 12/28/18 05:39 Total Bilirubin 0.80 mg/dL (0.1-1.2) 12/26/18 03:27 AST 143 units/L (5-40) H 12/26/18 03:27 ALT 94 units/L (7-56) H 12/26/18 03:27 Alkaline Phosphatase 97 units/L (35-129) 12/26/18 03:27 Ammonia 45.0 umol/L (25-60) 12/25/18 11:13 Total Creatine Kinase 3238 units/L (55-170) H 12/28/18 05:39 CK-MB (CK-2) 14.3 ng/mL (0.0-4.0) H 12/25/18 11:13 CK-MB (CK-2) Rel Index 0.8 (0-4) 12/25/18 11:13 Troponin T 0.020 ng/mL (0.00-0.029) 12/25/18 11:13 NT-Pro-B Natriuret Pep 2658 pg/mL (0-900) H 12/25/18 11:13 Total Protein 6.2 g/dL (6.3-8.2) L D 12/26/18 03:27 Albumin 3.6 g/dL (3.9-5) L 12/26/18 03:27 Albumin/Globulin Ratio 1.4 % 12/26/18 03:27 TSH 2.090 mlU/mL (0.270-4.200) 12/25/18 11:13 Free T4 0.85 ng/dL (0.76-1.46) 12/25/18 11:13 Urine Color Anamika (Yellow) 12/25/18 22:44 Urine Turbidity Slightly-cloudy (Clear) 12/25/18 22:44 Urine pH 5.0 (5.0-7.0) 12/25/18 22:44 Ur Specific [place] 1.024 (1.003-1.030) 12/25/18 22:44 Urine Protein 30 mg/dl mg/dL (Negative) 12/25/18 22:44 Urine Glucose (UA) Neg mg/dL (Negative) 12/25/18 22:44 Urine Ketones 20 mg/dL (Negative) 12/25/18 22:44 Urine Blood Sm (Negative) 12/25/18 22:44 Urine Nitrite Neg (Negative) 12/25/18 22:44 Urine Bilirubin Neg (Negative) 12/25/18 22:44 Urine Urobilinogen < 2.0 mg/dL (<2.0) 12/25/18 22:44 Ur Leukocyte Esterase Neg (Negative) 12/25/18 22:44 Urine WBC (Auto) 4.0 /HPF (0.0-6.0) 12/25/18 22:44 Urine RBC (Auto) 2.0 /HPF (0.0-6.0) 12/25/18 22:44 U Epithel Cells (Auto) < 1.0 /HPF (0-13.0) 12/25/18 22:44 Hyaline Casts 3 /LPF 12/25/18 22:44 Urine Mucus Few /HPF 12/25/18 22:44 Urine Creatinine 209.1 mg/dL (0.1-20.0) H 12/25/18 22:44 Urine Sodium 72 mmol/L 12/25/18 22:44 Urine Opiates Screen Presumptive negative 12/25/18 22:44 Urine Methadone Screen Presumptive negative 12/25/18 22:44 Ur Barbiturates Screen Presumptive negative 12/25/18 22:44 Ur Phencyclidine Scrn Presumptive negative 12/25/18 22:44 Ur Amphetamines Screen Presumptive positive 12/25/18 22:44 U Benzodiazepines Scrn Presumptive negative 12/25/18 22:44 Urine Cocaine Screen Presumptive negative 12/25/18 22:44 U Marijuana (THC) Screen Presumptive negative 12/25/18 22:44 Drugs of Abuse Note Disclamer 12/25/18 22:44 Plasma/Serum Alcohol < 0.01 % (0-0.07) 12/25/18 11:05 Active Medications - Current Medications Current Medications: Generic Name Dose Route Start Last Admin Trade Name Freq PRN Reason Stop Dose Admin Albuterol 2.5 mg 12/25/18 15:16 Proventil IH Q3HRT PRN Shortness Of Breath Atenolol 100 mg 12/28/18 10:00 12/28/18 10:23 Tenormin PO 100 mg QDAY SHELIA Administration Clonidine HCl 0.2 mg 12/28/18 10:00 Catapres PO Q12HR SHELIA Folic Acid 1 mg 12/26/18 10:00 12/28/18 10:23 Folvite PO 1 mg QDAY SHELIA Administration Hydralazine HCl 20 mg 12/27/18 23:06 Apresoline IV Q4H PRN SBP>170 orrr DBP >110 Ceftriaxone Sodium 1 gm in 50 mls @ 100 mls/hr 12/25/18 16:00 12/27/18 19:26 Rocephin/Ns 1 Gm/50 Ml IV Not Given Q24H SHELIA Protocol Dextrose 1,000 mls @ 100 mls/hr 12/27/18 13:00 12/28/18 10:24 D5w IV 50 mls/hr DIRECT SHELIA Administration Lorazepam 2 mg 12/25/18 13:29 12/26/18 06:34 Ativan IV 2 mg Q1HR PRN Administration CIWA-Ar 8-15 Lorazepam 4 mg 12/25/18 13:29 12/28/18 13:15 Ativan IV 4 mg Q1HR PRN Administration CIWA-Ar 16-25 Lorazepam 4 mg 12/25/18 13:29 12/28/18 00:24 Ativan IV 4 mg Q15MIN PRN Administration CIWA-Ar >25 Sodium Chloride 10 ml 12/25/18 22:00 12/28/18 10:26 Sodium Chloride Flush Syringe 10 Ml IV 10 ml BID SHELIA Administration Sodium Chloride 10 ml 12/25/18 15:16 Sodium Chloride Flush Syringe 10 Ml IV PRN PRN LINE FLUSH
--- NOTE | 2018-12-28 14:29 | XRay Report ---
AP CHEST: HISTORY: Fever, infiltrate Compared to 12/25/18. AP view of the chest demonstrates a normal mediastinal and cardiac contour with clear lungs and normal bony and soft tissue structures. IMPRESSION: Unremarkable AP chest. No evidence for pneumonia.
[2018-12-28 15:20] LABS: Calcium 9.7 mg/dL (8.4-10.2)
[2018-12-28] MEDS: CATAPRES PO SCH ×2 (17:11→22:58)
[2018-12-28] MEDS: ROCEPHIN/NS 1 GM/50 ML 1 GM/50 ML BAG IV SCH (17:11)
[2018-12-29 05:05] LABS: Basophils # (Auto) 0.2 K/mm3 (0.0-0.1); Basophils % (Auto) 2.5 % (0.0-1.8); Eosinophils # (Auto) 0.3 K/mm3 (0.0-0.4); Eosinophils % (Auto) 3.6 % (0.0-4.3); Hematocrit 43.1 % (35.5-45.6); Hemoglobin 14.3 gm/dl (11.8-15.2); Lymphocytes # (Auto) 2.1 K/mm3 (1.2-5.4); Mean Corpuscular HGB Conc 33 % (32-34); Mean Corpuscular Volume 108 fl (84-94); Monocytes # (Auto) 0.8 K/mm3 (0.0-0.8); Monocytes % (Auto) 9.3 % (0.0-7.3); Platelet Count 249 K/mm3 (140-440); Red Blood Count 3.99 M/mm3 (3.65-5.03); Red Cell Distribution Width 14.7 % (13.2-15.2)
[2018-12-29] MEDS: D5W 1,000 ML IV SCH (06:38)
--- NOTE | 2018-12-29 08:57 | Progress Note ---
Assessment and Plan Assessment and plan: Acute kidney injury Continue iv fluids Rhabdomyolysis Continue iv fluids Delirium tremens Alcohol withdrawal syndrome Still confused, having hallucinations CIWA protocol Continue Atenolol to 100mg daily Continue Clonidine to 0.2 mg by mouth twice a day Metabolic encephalopathy Hypernatremia,improved D5 water Hypertensive urgency Atenolol, Clonidine Full code History Interval history: Still Confused Hallucination Hospitalist Physical - Physical exam Narrative exam: Gen: Not in acute distress, lying in bed, on restraints HEENT: Normocephalic, atraumatic Heart: S1 and S2 reg, tachy,no murmurs, rubs or gallop Lungs: Clear, no crackles, Abd: soft, non tender, non distended, normal breath sounds Ext: No edema, no clubbing, no cyanosis Neuro: Awake,alert, oriented to person, not place or time, confused, moves all ext,tremors of hands Psych:Normal mood - Constitutional Vitals: Temp Pulse Resp BP Pulse Ox 98.0 F 65 11 L 119/72 98 12/29/18 08:00 12/29/18 08:00 12/29/18 08:00 12/29/18 08:00 12/29/18 08:00 General appearance: Present: well-nourished, obese Results - Labs CBC & Chem 7: 12/30/18 05:05 12/30/18 05:05 Labs: Laboratory Last Values WBC 8.3 K/mm3 (4.5-11.0) 12/29/18 04:07 RBC 3.99 M/mm3 (3.65-5.03) 12/29/18 04:07 Hgb 14.3 gm/dl (11.8-15.2) 12/29/18 04:07 Hct 43.1 % (35.5-45.6) 12/29/18 04:07 MCV 108 fl (84-94) H 12/29/18 04:07 MCH 36 pg (28-32) H 12/29/18 04:07 MCHC 33 % (32-34) 12/29/18 04:07 RDW 14.7 % (13.2-15.2) 12/29/18 04:07 Plt Count 249 K/mm3 (140-440) 12/29/18 04:07 Lymph % (Auto) 25.0 % (13.4-35.0) 12/29/18 04:07 [place] % (Auto) 9.3 % (0.0-7.3) H 12/29/18 04:07 Eos % (Auto) 3.6 % (0.0-4.3) 12/29/18 04:07 Baso % (Auto) 2.5 % (0.0-1.8) H 12/29/18 04:07 Lymph # 2.1 K/mm3 (1.2-5.4) 12/29/18 04:07 [place] # 0.8 K/mm3 (0.0-0.8) 12/29/18 04:07 Eos # 0.3 K/mm3 (0.0-0.4) 12/29/18 04:07 Baso # 0.2 K/mm3 (0.0-0.1) H 12/29/18 04:07 Seg Neutrophils % 59.6 % (40.0-70.0) 12/29/18 04:07 Seg Neutrophils # 4.9 K/mm3 (1.8-7.7) 12/29/18 04:07 APTT 24.2 Sec. (24.2-36.6) 12/25/18 11:13 Sodium 156 mmol/L (137-145) H 12/28/18 14:34 Potassium 4.1 mmol/L (3.6-5.0) 12/28/18 14:34 Chloride 118.5 mmol/L (98-107) H 12/28/18 14:34 Carbon Dioxide 22 mmol/L (22-30) 12/28/18 14:34 Anion Gap 20 mmol/L 12/28/18 14:34 BUN 27 mg/dL (9-20) H 12/28/18 14:34 Creatinine 1.5 mg/dL (0.8-1.5) 12/28/18 14:34 Estimated GFR 47 ml/min 12/28/18 14:34 BUN/Creatinine Ratio 18 % 12/28/18 14:34 Glucose 156 mg/dL (75-100) H 12/28/18 14:34 Calcium 9.7 mg/dL (8.4-10.2) 12/28/18 14:34 Phosphorus 6.30 mg/dL (2.5-4.5) H D 12/29/18 04:07 Total Bilirubin 0.80 mg/dL (0.1-1.2) 12/26/18 03:27 AST 143 units/L (5-40) H 12/26/18 03:27 ALT 94 units/L (7-56) H 12/26/18 03:27 Alkaline Phosphatase 97 units/L (35-129) 12/26/18 03:27 Ammonia 45.0 umol/L (25-60) 12/25/18 11:13 Total Creatine Kinase 1066 units/L (55-170) H 12/29/18 04:07 CK-MB (CK-2) 14.3 ng/mL (0.0-4.0) H 12/25/18 11:13 CK-MB (CK-2) Rel Index 0.8 (0-4) 12/25/18 11:13 Troponin T 0.020 ng/mL (0.00-0.029) 12/25/18 11:13 NT-Pro-B Natriuret Pep 2658 pg/mL (0-900) H 12/25/18 11:13 Total Protein 6.2 g/dL (6.3-8.2) L D 12/26/18 03:27 Albumin 3.6 g/dL (3.9-5) L 12/26/18 03:27 Albumin/Globulin Ratio 1.4 % 12/26/18 03:27 TSH 2.090 mlU/mL (0.270-4.200) 12/25/18 11:13 Free T4 0.85 ng/dL (0.76-1.46) 12/25/18 11:13 Urine Color Anamika (Yellow) 12/25/18 22:44 Urine Turbidity Slightly-cloudy (Clear) 12/25/18 22:44 Urine pH 5.0 (5.0-7.0) 12/25/18 22:44 Ur Specific [place] 1.024 (1.003-1.030) 12/25/18 22:44 Urine Protein 30 mg/dl mg/dL (Negative) 12/25/18 22:44 Urine Glucose (UA) Neg mg/dL (Negative) 12/25/18 22:44 Urine Ketones 20 mg/dL (Negative) 12/25/18 22:44 Urine Blood Sm (Negative) 12/25/18 22:44 Urine Nitrite Neg (Negative) 12/25/18 22:44 Urine Bilirubin Neg (Negative) 12/25/18 22:44 Urine Urobilinogen < 2.0 mg/dL (<2.0) 12/25/18 22:44 Ur Leukocyte Esterase Neg (Negative) 12/25/18 22:44 Urine WBC (Auto) 4.0 /HPF (0.0-6.0) 12/25/18 22:44 Urine RBC (Auto) 2.0 /HPF (0.0-6.0) 12/25/18 22:44 U Epithel Cells (Auto) < 1.0 /HPF (0-13.0) 12/25/18 22:44 Hyaline Casts 3 /LPF 12/25/18 22:44 Urine Mucus Few /HPF 12/25/18 22:44 Urine Creatinine 209.1 mg/dL (0.1-20.0) H 12/25/18 22:44 Urine Sodium 72 mmol/L 12/25/18 22:44 Urine Opiates Screen Presumptive negative 12/25/18 22:44 Urine Methadone Screen Presumptive negative 12/25/18 22:44 Ur Barbiturates Screen Presumptive negative 12/25/18 22:44 Ur Phencyclidine Scrn Presumptive negative 12/25/18 22:44 Ur Amphetamines Screen Presumptive positive 12/25/18 22:44 U Benzodiazepines Scrn Presumptive negative 12/25/18 22:44 Urine Cocaine Screen Presumptive negative 12/25/18 22:44 U Marijuana (THC) Screen Presumptive negative 12/25/18 22:44 Drugs of Abuse Note Disclamer 12/25/18 22:44 Plasma/Serum Alcohol < 0.01 % (0-0.07) 12/25/18 11:05 Active Medications - Current Medications Current Medications: Generic Name Dose Route Start Last Admin Trade Name Freq PRN Reason Stop Dose Admin Albuterol 2.5 mg 12/25/18 15:16 Proventil IH Q3HRT PRN Shortness Of Breath Atenolol 100 mg 12/28/18 10:00 12/28/18 10:23 Tenormin PO 100 mg QDAY HSELIA Administration Clonidine HCl 0.2 mg 12/28/18 10:00 12/28/18 22:58 Catapres PO Not Given Q12HR SHELIA Folic Acid 1 mg 12/26/18 10:00 12/28/18 10:23 Folvite PO 1 mg QDAY SHELIA Administration Hydralazine HCl 20 mg 12/27/18 23:06 Apresoline IV Q4H PRN SBP>170 orrr DBP >110 Ceftriaxone Sodium 1 gm in 50 mls @ 100 mls/hr 12/25/18 16:00 12/28/18 17:11 Rocephin/Ns 1 Gm/50 Ml IV 100 mls/hr Q24H SHELIA Administration Protocol Dextrose 1,000 mls @ 100 mls/hr 12/27/18 13:00 12/29/18 06:38 D5w IV 50 mls/hr DIRECT SHELIA Administration Lorazepam 2 mg 12/25/18 13:29 12/26/18 06:34 Ativan IV 2 mg Q1HR PRN Administration CIWA-Ar 8-15 Lorazepam 4 mg 12/25/18 13:29 12/28/18 15:04 Ativan IV 4 mg Q1HR PRN Administration CIWA-Ar 16-25 Lorazepam 4 mg 12/25/18 13:29 12/28/18 00:24 Ativan IV 4 mg Q15MIN PRN Administration CIWA-Ar >25 Sodium Chloride 10 ml 12/25/18 22:00 12/28/18 22:57 Sodium Chloride Flush Syringe 10 Ml IV 10 ml BID SHELIA Administration Sodium Chloride 10 ml 12/25/18 15:16 Sodium Chloride Flush Syringe 10 Ml IV PRN PRN LINE FLUSH
[2018-12-29] MEDS: CATAPRES PO SCH ×2 (09:32→21:55)
[2018-12-29] MEDS: FOLVITE PO SCH (09:33)
[2018-12-29] MEDS: SODIUM CHLORIDE FLUSH SYRINGE 10 ML IV SCH ×2 (09:33→21:55)
[2018-12-29] MEDS: TENORMIN PO SCH (09:33)
--- NOTE | 2018-12-29 11:38 | Progress Note ---
Assessment and Plan Acute renal failure, prerenal azotemia vs. ATH secondary to rhabo Alcohol withdrawals Hypernatremia Rhabdo secondary to alcohol abuse Shortness of breath - No new renal labs noted or resulted at present time. - Obtain BMP level in a.m - Serum creatinine yesterday was 1.4 today, prior level was 1.5 - Hypernatremia- On D5W@ 100 ml/hr. Encourage free water intake - No acute indication for PALM GATHERER - Renally dose medications - Strict I&O monitoring - Obtain daily weights - Avoid nephrotoxic agents - Continue to monitor renal function Subjective Date of service: 12/29/18 Principal diagnosis: Encephalopathy Interval history: Patient seen sleeping in bed in restraints. Has racoon eyes. Objective - Vital Signs Vital signs: Vital Signs - 12hr 12/29/18 12/29/18 12/29/18 00:00 00:01 01:00 Temperature 98.8 F Pulse Rate 58 L 58 L Respiratory 18 21 22 Rate Blood Pressure 104/63 109/77 O2 Sat by Pulse 100 99 99 Oximetry 12/29/18 12/29/18 12/29/18 02:00 03:00 04:00 Temperature 98.9 F Pulse Rate 54 L 59 L Respiratory 20 12 22 Rate Blood Pressure 98/60 90/64 O2 Sat by Pulse 98 88 95 Oximetry 12/29/18 12/29/18 12/29/18 04:01 05:00 06:00 Temperature Pulse Rate 65 66 68 Respiratory 14 16 15 Rate Blood Pressure 105/61 122/80 127/70 O2 Sat by Pulse 93 98 92 Oximetry 12/29/18 12/29/18 12/29/18 07:00 08:00 09:32 Temperature 98.0 F Pulse Rate 64 65 62 Respiratory 21 11 L Rate Blood Pressure 118/72 119/72 96/59 O2 Sat by Pulse 98 98 Oximetry 12/29/18 09:33 Temperature Pulse Rate 62 Respiratory Rate Blood Pressure 96/59 O2 Sat by Pulse Oximetry - General Appearance General appearance: well-developed EENT: ATNC, other (racoon eyesy) Neck: no JVD Respiratory: Present: Decreased Breath Sounds Cardiology: regular, S1S2 Gastrointestinal: normoactive bowel sounds Integumentary: warm and dry Neurologic: other (Sleeping) Musculoskeletal: other (No edema) - Lab 12/29/18 04:07 12/28/18 14:34 Most recent lab results Calcium 9.7 mg/dL (8.4-10.2) 12/28/18 14:34 Phosphorus 6.30 mg/dL (2.5-4.5) H D 12/29/18 04:07 Urine Creatinine 209.1 mg/dL (0.1-20.0) H 12/25/18 22:44 Urine Sodium 72 mmol/L 12/25/18 22:44 Medications & Allergies - Medications Allergies/Adverse Reactions: Allergies No Known Allergies Allergy (Verified 12/25/18 11:33) Home Medications: Home Medications Medication Instructions Recorded Confirmed Last Taken Type Unobtainable 12/26/18 12/26/18 Unknown History Active Medications: Generic Name Dose Route Start Last Admin Trade Name Freq PRN Reason Stop Dose Admin Albuterol 2.5 mg 12/25/18 15:16 Proventil IH Q3HRT PRN Shortness Of Breath Atenolol 100 mg 12/28/18 10:00 12/29/18 09:33 Tenormin PO Not Given QDAY SHELIA Clonidine HCl 0.2 mg 12/28/18 10:00 12/29/18 09:32 Catapres PO Not Given Q12HR SHELIA Folic Acid 1 mg 12/26/18 10:00 12/29/18 09:33 Folvite PO 1 mg QDAY SHELIA Administration Hydralazine HCl 20 mg 12/27/18 23:06 Apresoline IV Q4H PRN SBP>170 orrr DBP >110 Ceftriaxone Sodium 1 gm in 50 mls @ 100 mls/hr 12/25/18 16:00 12/28/18 17:11 Rocephin/Ns 1 Gm/50 Ml IV 100 mls/hr Q24H SHELIA Administration Protocol Dextrose 1,000 mls @ 100 mls/hr 12/27/18 13:00 12/29/18 06:38 D5w IV 50 mls/hr DIRECT SHELIA Administration Lorazepam 2 mg 12/25/18 13:29 12/26/18 06:34 Ativan IV 2 mg Q1HR PRN Administration CIWA-Ar 8-15 Lorazepam 4 mg 12/25/18 13:29 12/28/18 15:04 Ativan IV 4 mg Q1HR PRN Administration CIWA-Ar 16-25 Lorazepam 4 mg 12/25/18 13:29 12/28/18 00:24 Ativan IV 4 mg Q15MIN PRN Administration CIWA-Ar >25 Sodium Chloride 10 ml 12/25/18 22:00 12/29/18 09:33 Sodium Chloride Flush Syringe 10 Ml IV 10 ml BID SHELIA Administration Sodium Chloride 10 ml 12/25/18 15:16 Sodium Chloride Flush Syringe 10 Ml IV PRN PRN LINE FLUSH
[2018-12-29] MEDS: ROCEPHIN/NS 1 GM/50 ML 1 GM/50 ML BAG IV SCH (15:12)
[2018-12-30 05:50] LABS: Basophils % (Auto) 0.5 % (0.0-1.8); Eosinophils # (Auto) 0.2 K/mm3 (0.0-0.4); Eosinophils % (Auto) 2.3 % (0.0-4.3); Hematocrit 41.1 % (35.5-45.6); Hemoglobin 13.7 gm/dl (11.8-15.2); Lymphocytes # (Auto) 1.4 K/mm3 (1.2-5.4); Lymphocytes % (Auto) 18.6 % (13.4-35.0); Mean Corpuscular HGB Conc 33 % (32-34); Mean Corpuscular Volume 106 fl (84-94); Monocytes # (Auto) 0.5 K/mm3 (0.0-0.8); Monocytes % (Auto) 6.3 % (0.0-7.3); Platelet Count 227 K/mm3 (140-440); Red Blood Count 3.88 M/mm3 (3.65-5.03)
[2018-12-30 05:52] LABS: BUN/Creatinine Ratio 20; Blood Urea Nitrogen 24 mg/dL (9-20); Hemolysis Index 14
[2018-12-30] MEDS: CATAPRES PO SCH (10:20)
[2018-12-30] MEDS: SODIUM CHLORIDE FLUSH SYRINGE 10 ML IV SCH ×2 (10:21→21:57)
[2018-12-30] MEDS: FOLVITE PO SCH (10:21)
[2018-12-30] MEDS: TENORMIN PO SCH (10:26)
--- NOTE | 2018-12-30 11:05 | Progress Note ---
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 History Interval history: Feels much better No more confusion No more Hallucination Hospitalist Physical - Physical exam Narrative exam: Gen: Not in acute distress, lying in bed, on restraints HEENT: Normocephalic, atraumatic Heart: S1 and S2 reg, tachy,no murmurs, rubs or gallop Lungs: Clear, no crackles, no wheeze Abd: soft, non tender, non distended, normal breath sounds Ext: No edema, no clubbing, no cyanosis Neuro: Awake,alert, oriented X 3, moves all ext,less tremors of hands Psych:Normal mood - Constitutional Vitals: Temp Pulse Resp BP Pulse Ox 98.0 F 66 20 89/52 99 12/30/18 10:55 12/30/18 10:55 12/30/18 10:55 12/30/18 10:55 12/30/18 10:55 General appearance: Present: well-nourished Results - Labs CBC & Chem 7: 12/30/18 05:05 12/30/18 05:05 Labs: Laboratory Last Values WBC 7.4 K/mm3 (4.5-11.0) 12/30/18 05:05 RBC 3.88 M/mm3 (3.65-5.03) 12/30/18 05:05 Hgb 13.7 gm/dl (11.8-15.2) 12/30/18 05:05 Hct 41.1 % (35.5-45.6) 12/30/18 05:05 MCV 106 fl (84-94) H 12/30/18 05:05 MCH 35 pg (28-32) H 12/30/18 05:05 MCHC 33 % (32-34) 12/30/18 05:05 RDW 15.0 % (13.2-15.2) 12/30/18 05:05 Plt Count 227 K/mm3 (140-440) 12/30/18 05:05 Lymph % (Auto) 18.6 % (13.4-35.0) 12/30/18 05:05 [place] % (Auto) 6.3 % (0.0-7.3) 12/30/18 05:05 Eos % (Auto) 2.3 % (0.0-4.3) 12/30/18 05:05 Baso % (Auto) 0.5 % (0.0-1.8) 12/30/18 05:05 Lymph # 1.4 K/mm3 (1.2-5.4) 12/30/18 05:05 [place] # 0.5 K/mm3 (0.0-0.8) 12/30/18 05:05 Eos # 0.2 K/mm3 (0.0-0.4) 12/30/18 05:05 Baso # 0.0 K/mm3 (0.0-0.1) 12/30/18 05:05 Seg Neutrophils % 72.3 % (40.0-70.0) H 12/30/18 05:05 Seg Neutrophils # 5.4 K/mm3 (1.8-7.7) 12/30/18 05:05 APTT 24.2 Sec. (24.2-36.6) 12/25/18 11:13 Sodium 148 mmol/L (137-145) H D 12/30/18 05:05 Potassium 3.8 mmol/L (3.6-5.0) 12/30/18 05:05 Chloride 110.1 mmol/L (98-107) H 12/30/18 05:05 Carbon Dioxide 24 mmol/L (22-30) 12/30/18 05:05 Anion Gap 18 mmol/L 12/30/18 05:05 BUN 24 mg/dL (9-20) H 12/30/18 05:05 Creatinine 1.2 mg/dL (0.8-1.5) 12/30/18 05:05 Estimated GFR > 60 ml/min 12/30/18 05:05 BUN/Creatinine Ratio 20 % 12/30/18 05:05 Glucose 113 mg/dL (75-100) H 12/30/18 05:05 POC Glucose 86 (70-105) 12/30/18 07:58 Calcium 9.0 mg/dL (8.4-10.2) 12/30/18 05:05 Phosphorus 3.90 mg/dL (2.5-4.5) D 12/30/18 05:05 Magnesium 2.10 mg/dL (1.7-2.3) 12/30/18 05:05 Total Bilirubin 0.80 mg/dL (0.1-1.2) 12/26/18 03:27 AST 143 units/L (5-40) H 12/26/18 03:27 ALT 94 units/L (7-56) H 12/26/18 03:27 Alkaline Phosphatase 97 units/L (35-129) 12/26/18 03:27 Ammonia 45.0 umol/L (25-60) 12/25/18 11:13 Total Creatine Kinase 258 units/L (55-170) H 12/30/18 05:05 CK-MB (CK-2) 14.3 ng/mL (0.0-4.0) H 12/25/18 11:13 CK-MB (CK-2) Rel Index 0.8 (0-4) 12/25/18 11:13 Troponin T 0.020 ng/mL (0.00-0.029) 12/25/18 11:13 NT-Pro-B Natriuret Pep 2658 pg/mL (0-900) H 12/25/18 11:13 Total Protein 6.2 g/dL (6.3-8.2) L D 12/26/18 03:27 Albumin 3.6 g/dL (3.9-5) L 12/26/18 03:27 Albumin/Globulin Ratio 1.4 % 12/26/18 03:27 TSH 2.090 mlU/mL (0.270-4.200) 12/25/18 11:13 Free T4 0.85 ng/dL (0.76-1.46) 12/25/18 11:13 Urine Color Anamika (Yellow) 12/25/18 22:44 Urine Turbidity Slightly-cloudy (Clear) 12/25/18 22:44 Urine pH 5.0 (5.0-7.0) 12/25/18 22:44 Ur Specific [place] 1.024 (1.003-1.030) 12/25/18 22:44 Urine Protein 30 mg/dl mg/dL (Negative) 12/25/18 22:44 Urine Glucose (UA) Neg mg/dL (Negative) 12/25/18 22:44 Urine Ketones 20 mg/dL (Negative) 12/25/18 22:44 Urine Blood Sm (Negative) 12/25/18 22:44 Urine Nitrite Neg (Negative) 12/25/18 22:44 Urine Bilirubin Neg (Negative) 12/25/18 22:44 Urine Urobilinogen < 2.0 mg/dL (<2.0) 12/25/18 22:44 Ur Leukocyte Esterase Neg (Negative) 12/25/18 22:44 Urine WBC (Auto) 4.0 /HPF (0.0-6.0) 12/25/18 22:44 Urine RBC (Auto) 2.0 /HPF (0.0-6.0) 12/25/18 22:44 U Epithel Cells (Auto) < 1.0 /HPF (0-13.0) 12/25/18 22:44 Hyaline Casts 3 /LPF 12/25/18 22:44 Urine Mucus Few /HPF 12/25/18 22:44 Urine Creatinine 209.1 mg/dL (0.1-20.0) H 12/25/18 22:44 Urine Sodium 72 mmol/L 12/25/18 22:44 Urine Opiates Screen Presumptive negative 12/25/18 22:44 Urine Methadone Screen Presumptive negative 12/25/18 22:44 Ur Barbiturates Screen Presumptive negative 12/25/18 22:44 Ur Phencyclidine Scrn Presumptive negative 12/25/18 22:44 Ur Amphetamines Screen Presumptive positive 12/25/18 22:44 U Benzodiazepines Scrn Presumptive negative 12/25/18 22:44 Urine Cocaine Screen Presumptive negative 12/25/18 22:44 U Marijuana (THC) Screen Presumptive negative 12/25/18 22:44 Drugs of Abuse Note Disclamer 12/25/18 22:44 Plasma/Serum Alcohol < 0.01 % (0-0.07) 12/25/18 11:05 Active Medications - Current Medications Current Medications: Generic Name Dose Route Start Last Admin Trade Name Freq PRN Reason Stop Dose Admin Albuterol 2.5 mg 12/25/18 15:16 Proventil IH Q3HRT PRN Shortness Of Breath Atenolol 50 mg 12/31/18 10:00 Tenormin PO QDAY SHELIA Folic Acid 1 mg 12/26/18 10:00 12/30/18 10:21 Folvite PO 1 mg QDAY SHELIA Administration Hydralazine HCl 20 mg 12/27/18 23:06 Apresoline IV Q4H PRN SBP>170 orrr DBP >110 Ceftriaxone Sodium 1 gm in 50 mls @ 100 mls/hr 12/25/18 16:00 12/29/18 15:12 Rocephin/Ns 1 Gm/50 Ml IV 100 mls/hr Q24H SHELIA Administration Protocol Dextrose 1,000 mls @ 100 mls/hr 12/27/18 13:00 12/29/18 06:38 D5w IV 50 mls/hr DIRECT SHELIA Administration Lorazepam 2 mg 12/25/18 13:29 12/26/18 06:34 Ativan IV 2 mg Q1HR PRN Administration CIWA-Ar 8-15 Lorazepam 4 mg 12/25/18 13:29 12/28/18 15:04 Ativan IV 4 mg Q1HR PRN Administration CIWA-Ar 16-25 Lorazepam 4 mg 12/25/18 13:29 12/28/18 00:24 Ativan IV 4 mg Q15MIN PRN Administration CIWA-Ar >25 Sodium Chloride 10 ml 12/25/18 22:00 12/30/18 10:21 Sodium Chloride Flush Syringe 10 Ml IV 10 ml BID SHELIA Administration Sodium Chloride 10 ml 12/25/18 15:16 Sodium Chloride Flush Syringe 10 Ml IV PRN PRN LINE FLUSH
--- NOTE | 2018-12-30 11:12 | Progress Note ---
Assessment and Plan Acute renal failure, prerenal azotemia vs. ATH secondary to rhabo Alcohol withdrawals Hypernatremia, improving Rhabdo secondary to alcohol abuse Shortness of breath - Serum creatinine yesterday was 1.2 today, prior level was 1.4, non-oliguric - Hypernatremia- improving on D5W@ 100 ml/hr. Encourage free water intake - No acute indication for PATIENT CARE SECRETARY - Renally dose medications - Strict I&O monitoring - Obtain daily weights - Avoid nephrotoxic agents - Continue to monitor renal function Subjective Date of service: 12/30/18 Principal diagnosis: Encephalopathy Interval history: Patient seen awake but trying to get out of bed and lifting feet in the air. RN at bedside trying to reposition patient back in bed Objective - Vital Signs Vital signs: Vital Signs - 12hr 12/29/18 12/30/18 12/30/18 23:40 03:15 08:50 Temperature 98.3 F 97.9 F Pulse Rate 65 69 64 Respiratory 18 20 Rate Blood Pressure 92/56 116/77 114/68 O2 Sat by Pulse 95 98 97 Oximetry 12/30/18 12/30/18 12/30/18 10:20 10:26 10:55 Temperature 98.0 F Pulse Rate 66 66 66 Respiratory 20 Rate Blood Pressure 114/68 114/68 89/52 O2 Sat by Pulse 99 Oximetry - General Appearance General appearance: well-developed, fatigue EENT: ATNC, other (racoon eyes) Neck: no JVD, supple Respiratory: Present: Decreased Breath Sounds Cardiology: regular, S1S2 Gastrointestinal: normoactive bowel sounds Integumentary: warm and dry Neurologic: confused, disoriented Musculoskeletal: other (Has swelling to upper extremities) - Lab 12/30/18 05:05 12/30/18 05:05 Most recent lab results Calcium 9.0 mg/dL (8.4-10.2) 12/30/18 05:05 Phosphorus 3.90 mg/dL (2.5-4.5) D 12/30/18 05:05 Magnesium 2.10 mg/dL (1.7-2.3) 12/30/18 05:05 Urine Creatinine 209.1 mg/dL (0.1-20.0) H 12/25/18 22:44 Urine Sodium 72 mmol/L 12/25/18 22:44 Medications & Allergies - Medications Allergies/Adverse Reactions: Allergies No Known Allergies Allergy (Verified 12/25/18 11:33) Home Medications: Home Medications Medication Instructions Recorded Confirmed Last Taken Type Unobtainable 12/26/18 12/26/18 Unknown History Active Medications: Generic Name Dose Route Start Last Admin Trade Name Freq PRN Reason Stop Dose Admin Albuterol 2.5 mg 12/25/18 15:16 Proventil IH Q3HRT PRN Shortness Of Breath Atenolol 50 mg 12/31/18 10:00 Tenormin PO QDAY SHELIA Folic Acid 1 mg 12/26/18 10:00 12/30/18 10:21 Folvite PO 1 mg QDAY SHELIA Administration Hydralazine HCl 20 mg 12/27/18 23:06 Apresoline IV Q4H PRN SBP>170 orrr DBP >110 Ceftriaxone Sodium 1 gm in 50 mls @ 100 mls/hr 12/25/18 16:00 12/29/18 15:12 Rocephin/Ns 1 Gm/50 Ml IV 100 mls/hr Q24H SHELIA Administration Protocol Dextrose 1,000 mls @ 100 mls/hr 12/27/18 13:00 12/29/18 06:38 D5w IV 50 mls/hr DIRECT SHELIA Administration Lorazepam 2 mg 12/25/18 13:29 12/26/18 06:34 Ativan IV 2 mg Q1HR PRN Administration CIWA-Ar 8-15 Lorazepam 4 mg 12/25/18 13:29 12/28/18 15:04 Ativan IV 4 mg Q1HR PRN Administration CIWA-Ar 16-25 Lorazepam 4 mg 12/25/18 13:29 12/28/18 00:24 Ativan IV 4 mg Q15MIN PRN Administration CIWA-Ar >25 Sodium Chloride 10 ml 12/25/18 22:00 12/30/18 10:21 Sodium Chloride Flush Syringe 10 Ml IV 10 ml BID SHELIA Administration Sodium Chloride 10 ml 12/25/18 15:16 Sodium Chloride Flush Syringe 10 Ml IV PRN PRN LINE FLUSH
[2018-12-30] MEDS: ROCEPHIN/NS 1 GM/50 ML 1 GM/50 ML BAG IV SCH (16:55)
[2018-12-30] MEDS ORDERED: LOVENOX SUB-Q SCH (23:45)
[2018-12-31 06:29] LABS: Basophils % (Auto) 0.3 % (0.0-1.8); Eosinophils # (Auto) 0.1 K/mm3 (0.0-0.4); Hematocrit 38.9 % (35.5-45.6); Lymphocytes # (Auto) 1.5 K/mm3 (1.2-5.4); Lymphocytes % (Auto) 21.1 % (13.4-35.0); Mean Corpuscular HGB Conc 34 % (32-34); Mean Corpuscular Volume 106 fl (84-94); Monocytes # (Auto) 0.6 K/mm3 (0.0-0.8); Platelet Count 199 K/mm3 (140-440); Red Blood Count 3.66 M/mm3 (3.65-5.03)
[2018-12-31 07:02] LABS: BUN/Creatinine Ratio 18; Blood Urea Nitrogen 20 mg/dL (9-20); Calcium 8.8 mg/dL (8.4-10.2); Hemolysis Index 4
--- NOTE | 2018-12-31 09:40 | Progress Note ---
Assessment and Plan Acute renal failure, prerenal azotemia vs. ATH secondary to rhabo Alcohol withdrawals Hypernatremia Rhabdo secondary to alcohol abuse shortness of breath - AARON resolved - hypernatremia resolved, will decrease D5W to 50 cc/h, can d/c when the patient is drinking more on his own - renally dose meds - strict I&O - daily weight Will sign off, please reconsult if needed. Rizwan Smith MD [phone] Subjective Date of service: 12/31/18 Principal diagnosis: Encephalopathy Interval history: feels better denies acute issues Objective - Vital Signs Vital signs: Vital Signs - 12hr 12/30/18 12/31/18 12/31/18 23:49 03:31 04:50 Temperature 98.0 F 97.8 F Pulse Rate 62 61 59 L Respiratory 16 12 Rate Blood Pressure 95/56 112/72 O2 Sat by Pulse 92 98 Oximetry - General Appearance General appearance: well-developed, well-nourished EENT: ATNC, PERRL, mucous membranes moist Neck: no JVD, no carotid bruit Respiratory: Present: Clear to Ascultation Cardiology: regular, S1S2 Gastrointestinal: normoactive bowel sounds Integumentary: no rash, warm and dry Neurologic: no focal deficit, no asterixis, alert and oriented x3 Musculoskeletal: other (no edema in BLE) Psychiatric: mood/affect appropriate, cooperative - Lab 12/31/18 05:04 12/31/18 05:04 Most recent lab results Calcium 8.8 mg/dL (8.4-10.2) 12/31/18 05:04 Phosphorus 3.10 mg/dL (2.5-4.5) D 12/31/18 05:04 Magnesium 2.10 mg/dL (1.7-2.3) 12/30/18 05:05 Urine Creatinine 209.1 mg/dL (0.1-20.0) H 12/25/18 22:44 Urine Sodium 72 mmol/L 12/25/18 22:44 Medications & Allergies - Medications Allergies/Adverse Reactions: Allergies No Known Allergies Allergy (Verified 12/25/18 11:33) Home Medications: Home Medications Medication Instructions Recorded Confirmed Last Taken Type Unobtainable 12/26/18 12/26/18 Unknown History Active Medications: Generic Name Dose Route Start Last Admin Trade Name Freq PRN Reason Stop Dose Admin Albuterol 2.5 mg 12/25/18 15:16 Proventil IH Q3HRT PRN Shortness Of Breath Enoxaparin Sodium 40 mg 12/30/18 23:45 12/31/18 04:54 Lovenox SUB-Q Not Given DAILY@2200 SHELIA Folic Acid 1 mg 12/26/18 10:00 12/30/18 10:21 Folvite PO 1 mg QDAY SHELIA Administration Hydralazine HCl 20 mg 12/27/18 23:06 Apresoline IV Q4H PRN SBP>170 orrr DBP >110 Ceftriaxone Sodium 1 gm in 50 mls @ 100 mls/hr 12/25/18 16:00 12/30/18 16:55 Rocephin/Ns 1 Gm/50 Ml IV 100 mls/hr Q24H SHELIA Administration Protocol Dextrose 1,000 mls @ 100 mls/hr 12/27/18 13:00 12/29/18 06:38 D5w IV 50 mls/hr DIRECT SHELIA Administration Lorazepam 2 mg 12/25/18 13:29 12/26/18 06:34 Ativan IV 2 mg Q1HR PRN Administration CIWA-Ar 8-15 Lorazepam 4 mg 12/25/18 13:29 12/28/18 15:04 Ativan IV 4 mg Q1HR PRN Administration CIWA-Ar 16-25 Lorazepam 4 mg 12/25/18 13:29 12/28/18 00:24 Ativan IV 4 mg Q15MIN PRN Administration CIWA-Ar >25 Sodium Chloride 10 ml 12/25/18 22:00 12/30/18 21:57 Sodium Chloride Flush Syringe 10 Ml IV 10 ml BID SHELIA Administration Sodium Chloride 10 ml 12/25/18 15:16 Sodium Chloride Flush Syringe 10 Ml IV PRN PRN LINE FLUSH
[2018-12-31] MEDS: FOLVITE PO SCH (09:57)
[2018-12-31] MEDS: SODIUM CHLORIDE FLUSH SYRINGE 10 ML IV SCH (09:57)
[2018-12-31] MEDS ORDERED: TENORMIN PO SCH (10:00)
--- NOTE | 2018-12-31 10:36 | Discharge Summary ---
Providers - Providers Date of Admission: 12/25/18 15:17 Date of discharge: 12/31/18 Attending physician: NANCY BABB 12/25/18 15:20 Consult to Physician [CONS] Routine Comment: DR LEDESMA NOTIFIED [id number] Consulting Provider: MARYJANE PITT Physician Instructions: Reason For Exam: Rhabdo/ARF 12/30/18 14:43 Physical Therapy Evaluation and Treat [CONS] Routine Comment: Reason For Exam: FALLS/WEAKNESS [facility] Condition: Stable Hospital course: Patient is 63 yo with hypertension, alcohol dependence presents to ED for evaluation. Pt is confused, and hallucinating and unable to provide detailed history. Pt history taken from family who is at bedside during exam and i nterview. As per family, the patient has experienced increased confusion and recurrent falls over the past 1 week. Pt has decreased his ETOH intake in an attempt to stop over the past 1 week. Patient seen and evaluated in ED and found to have alcohol wthdrawal with Delirium Tremens, Encephalopathy, SIRS, Rhabdomyolysis, Acidosis, and Acute Renal Failure. He was started on iv fluids, CIWA protocol and admitted. Nephrology was consulted and he was evaluated. his renal function normalized by next day. BP increased so Atenolol and Clonidine were added. He improved slowly over several days, mental status improved, hallucinations resolved and he was subsequently discharged home on 12/31/18. Total time spent on discharge, 35 mins Disposition: DC-01 TO HOME OR SELFCARE - Discharge Diagnoses (1) Alcohol withdrawal syndrome Status: Acute (2) Metabolic encephalopathy Status: Acute (3) Alcohol withdrawal Status: Acute (4) Delirium tremens Status: Acute (5) Rhabdomyolysis Status: Acute Qualifiers: Encounter type: initial encounter (6) SIRS (systemic inflammatory response syndrome) Status: Acute (7) Hypertensive urgency Status: Acute (8) AARON (acute kidney injury) Status: Acute (9) Vasomotor nephropathy Status: Acute Core Measure Documentation - Palliative Care Palliative Care/ Comfort Measures: Not Applicable - Core Measures Any of the following diagnoses?: none Exam - Constitutional Vitals: Temp Pulse Resp BP Pulse Ox 97.8 F 59 L 12 112/72 98 12/31/18 03:31 12/31/18 04:50 12/31/18 03:31 12/31/18 03:31 12/31/18 03:31 Plan Activity: advance as tolerated Diet: low fat, low cholesterol, low salt Additional Instructions: 1.Follow up with PCP in 1 week. 2.Avoid alcohol Follow up with: CARLOS ALBERTO YOUNGER MD [Primary Care Provider] - 3-5 Days Prescriptions: Folic Acid [Folvite] 1 mg PO QDAY #30 tablet amLODIPine [Norvasc] 5 mg PO DAILY #30 tab Multivitamin [One-Daily Multi-Vitamin] 1 each PO DAILY #30 tablet Thiamine [Vitamin B-1] 100 mg PO QDAY #30 tablet
[2018-12-31 13:22] VITALS: BP 99/66
== END 2018-12-31 15:55 | disposition home or self-care (01) | DRG 682 ==
LOC: ED 10:40 → IMCU 15:17 → 4A 12-29 17:04
PROVIDERS: ADMIT Internal Medicine; ATTEND Internal Medicine
DX: N17.0 Acute kidney failure with tubular necrosis (principal); G93.41 Metabolic encephalopathy; I50.31 Acute diastolic (congestive) heart failure; M62.82 Rhabdomyolysis; F10.239 Alcohol dependence with withdrawal, unspecified; R65.10 Systemic inflammatory response syndrome (SIRS) of non-infectious origin without acute organ dysfunction; E87.0 Hyperosmolality and hypernatremia; F10.231 Alcohol dependence with withdrawal delirium; E87.2 Acidosis; R79.89 Other specified abnormal findings of blood chemistry; I16.0 Hypertensive urgency; I11.0 Hypertensive heart disease with heart failure; S09.90XA Unspecified injury of head, initial encounter; Z82.49 Family history of ischemic heart disease and other diseases of the circulatory system; Z72.89 Other problems related to lifestyle; Y93.89 Activity, other specified; Y92.89 Other specified places as the place of occurrence of the external cause; Y99.8 Other external cause status
CPT/HCPCS: 36415; 70450; 71045; 72125; 80048; 80053; 80307; 80320; 81001; 82140; 82550; 82553; 82570; 82962; 83735; 83880; 84100; 84300; 84439; 84443; 84484; 85025; 85730; 87040; 90471; 90715; 93005; 93010; 94760; 96361; 96365; 96366; G0378; G0480; J0696; J1630; J2060; J3411; J3475; J7030; J7070